=== PATIENT | female | born 1950 | race Caucasian/White ===

== ENCOUNTER → 2016-08-09 | Outpatient (CLI) | payer MEDICARE, OTHER ==
[~2016-08-09] MED LIST: ASCRIPTIN1 TA1 PO; ASPIRIN ADULT L81 M1 PO; HYDROCODONE BIT1 T11 PO; NAPROSYN500 MG PO; ONCE DAILY1 TAB PO; TRAMADOL HCL50 MG PO; TYLENOL PM 5001 CAP PO
== END | disposition home or self-care (01) ==
LOC: NM 10:43
DX: S79.912A Unspecified injury of left hip, initial encounter (principal); X58.XXXA Exposure to other specified factors, initial encounter; Y93.89 Activity, other specified; Y92.89 Other specified places as the place of occurrence of the external cause; Y99.8 Other external cause status; M25.552 Pain in left hip

== ENCOUNTER → 2016-08-14 | Outpatient (CLI) | payer MEDICARE, OTHER | END | disposition home or self-care (01) | LOC: CT 13:00 | DX: R93.8 Abnormal findings on diagnostic imaging of other specified body structures (principal) ==

== ENCOUNTER 2023-05-21 08:59 | Emergency (ER) | payer MEDICARE ==
[~2023-05-21] VITALS: Wt 61.2 kg
[~2023-05-21 08:59] MED LIST changes: +CEPHALEXIN500 M1 PO; +LIDEX 0.05% CRE15 GM T
[2023-05-21 09:12] VITALS: BP 151/60
[2023-05-21] MEDS ORDERED: HYDROCODONE-AC1 EAC1 PO (11:10)
== END 2023-05-21 11:21 | disposition home or self-care (01) ==
LOC: ED 08:59
DX: S42.201A Unspecified fracture of upper end of right humerus, initial encounter for closed fracture (principal); G43.909 Migraine, unspecified, not intractable, without status migrainosus; Z90.49 Acquired absence of other specified parts of digestive tract; Z98.890 Other specified postprocedural states; Z90.710 Acquired absence of both cervix and uterus; W01.0XXA Fall on same level from slipping, tripping and stumbling without subsequent striking against object, initial encounter; Y93.89 Activity, other specified; Y92.89 Other specified places as the place of occurrence of the external cause; Y99.8 Other external cause status

== ENCOUNTER → 2023-05-30 | Outpatient (CLI) | payer MEDICARE ==
[~2023-05-30] MED LIST changes: +HYDROCODONE-AC1 EAC1 PO
== END | disposition home or self-care (01) ==
LOC: ORTHO 03:05
PROVIDERS: ATTEND Orthopaedic Surgery
DX: S42.201D Unspecified fracture of upper end of right humerus, subsequent encounter for fracture with routine healing (principal); X58.XXXD Exposure to other specified factors, subsequent encounter

== ENCOUNTER → 2023-06-16 | Outpatient (CLI) | payer OTHER | END | disposition home or self-care (01) | LOC: ORTHO 01:51 | PROVIDERS: ATTEND Orthopaedic Surgery | DX: S42.201D Unspecified fracture of upper end of right humerus, subsequent encounter for fracture with routine healing (principal); X58.XXXD Exposure to other specified factors, subsequent encounter ==